=== PATIENT | male | born 1925 | race Caucasian/White ===

== ENCOUNTER 2016-08-06 20:00 | Emergency (ER) | payer OTHER, MEDICARE ==
[~2016-08-06] VITALS: Ht 167.6 cm; Wt 71.2 kg
[~2016-08-06 20:00] MED LIST: ASPIR 8181 MG PO; ATORVASTATIN CA20 MG PO; FINASTERIDE5 MG PO; FUROSEMIDE20 MG PO; GABAPENTIN300 MG PO; MEDROL DOSEPAK1 PAC PO; METOPROLOL TART50 MG PO; NAPROSYN 250MG250 MG PO; TAMSULOSIN HYD0.4 MG PO; TRAMADOL50 MG PO; VESICARE 5MG5 MG PO
[2016-08-06] MEDS ORDERED: LISINOPRIL5 M1 PO (21:45)
[2016-08-06] MEDS ORDERED: VESICARE10 MG PO (21:45)
[2016-08-06] MEDS ORDERED: LASIX20 M1 PO (21:45)
[2016-08-06] MEDS ORDERED: ASPIRIN81 M4 PO (21:46)
[2016-08-06] MEDS ORDERED: LIPITOR10 M1 PO (21:46)
[2016-08-06] MEDS ORDERED: MULTIVITAMINS1 EAC8 PO (21:46)
[2016-08-06] MEDS ORDERED: METOPROLOL TART25 M1 PO (21:46)
[2016-08-06] MEDS ORDERED: PROSCAR5 M1 PO (21:47)
[2016-08-06] MEDS ORDERED: TIMOLOL MALEATE10 ML OP (21:48)
[2016-08-06] MEDS ORDERED: ALBUTEROL0.63 MG/1 INH/SOL (21:48)
--- NOTE | 2016-08-06 22:13 | ED HEADACHE COMPLAINT ---
History of Present Illness General Chief Complaint: Laceration Procedure Stated Complaint: TRIPPED AND FELL, -LOC Source: patient, family Exam Limitations: no limitations Vital Signs & Intake/Output Vital Signs & Intake/Output Vital Signs Date Time Temp Pulse Resp B/P Pulse O2 O2 Flow FiO2 Ox Delivery Rate 08/06 2253 97.8 78 20 133/71 96 Room Air 08/067 97.6 82 16 132/77 96 Room Air ED Intake and Output 08/07 0000 08/06 1200 Intake Total Output Total Balance Patient 157 lb Weight Allergies Coded Allergies: NO KNOWN ALLERGIES (04/22/14) Reconcile Medications Albuterol Sulfate 0.63 MG/3 ML VIAL.NEB 1 Vial INH/RONALD 4 TIMES/DAY PRN WHEEZING (Reported) Aspirin (Aspirin*) 81 MG TAB.CHEW 1 TAB PO DAILY CARDIAC (Reported) Atorvastatin Calcium (Lipitor) 10 MG TABLET 1 TAB PO DAILY HPL (Reported) Atorvastatin Calcium (Lipitor) 10 MG TABLET 1 TAB PO DAILY HPL (Reported) Finasteride (Proscar) 5 MG TABLET 1 TAB PO DAILY PROSTATE (Reported) Furosemide (Lasix) 20 MG TABLET 1 TAB PO DAILY CARDIAC (Reported) Lisinopril 5 MG TABLET 1 TAB PO DAILY HTN (Reported) Metoprolol Tartrate 25 MG TABLET 1 TAB PO BID HTN (Reported) Multivitamin (Multivitamins) 1 EACH CAPSULE 1 TAB PO DAILY SUPPLEMENT ( Reported) Solifenacin Succinate (Vesicare) 10 MG TABLET 1 TAB PO DAILY URINARY SYMPTOMS (Reported) Timolol Maleate (Unknown Strength) DROPS (Unknown Dose) OP [facility] GLAUCOMA ( Reported) Triage Note: PT TO TRAIGE WITH LAC TO FOREHEAD AND NOSE S/P TRIPPED AND FELL 1HR SAGGER SOAK. PT DENIES LOC, DENIES ANY SIMPTOMS. BLEEDING CONTROLLED. PT UNSURE OF LAST TETANUS VACCINATION. Triage Nurses Notes Reviewed? yes Onset: Abrupt Duration: gone now Timing: single episode today Quality/Severity: mild Severity Numbers: 1 Head Injury Location: frontal HPI: Patient is an 89-year-old male who presents emergency and that today this evening while at his private residence he was ambulating patient tripped on a open cabinet fell forward struck the anterior part of his forehead and nose to the ground where lacerations did occur nosebleed had resolved prior to arrival. Patient denies any preceding episode of lightheaded or dizzy sensation. Denies any loss of consciousness. Patient currently denies any headache blurred vision nausea vomiting neck pain back pain and is otherwise without complaints. Patient did not take medications prior to arrival. Tetanus is unknown. (CARRINGTON SANCHEZ) Past History Travel History Traveled to [place] past 21 day No Medical History Any Pertinent Medical History? 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 No (CARRINGTON SANCHEZ) Review of Systems Review of Systems Constitutional: Reports: no symptoms. Eyes: Reports: no symptoms. Ears, Nose, Throat, Mouth: Reports: see HPI, epistaxis. Respiratory: Reports: no symptoms. Cardiovascular: Reports: no symptoms. Gastrointestinal/Abdominal: Reports: no symptoms. Genitourinary: Reports: no symptoms. Musculoskeletal: Reports: no symptoms. Skin: Reports: no symptoms. Neurological/Psychological: Reports: no symptoms. Hematologic/Endocrine: Reports: see HPI, bleeding. Endocrine: Reports: no symptoms. Immunologic/Allergic: Reports: no symptoms. All Other Systems: Reviewed and Negative (CARRINGTON SANCHEZ) Physical Exam Physical Exam General Appearance: no apparent distress, alert, comfortable Cranial Nerves: normal hearing, normal speech, PERRL Skin: normal color, warm/dry Comments: Well-developed well-nourished person in no acute distress HEENT: Normal EENT exam, extraocular motion intact, no nystagmus. Pupils equally round and reactive to light and accommodation. External auditory canal and Tympanic membranes clear. Pharynx normal. No swelling or edema. Neck: Supple, no lymphadenopathy, normal range of motion without pain or tenderness No central spinous tenderness Back: Nontender, no CVA tenderness. No central spinous tenderness Cardiovascular: Regular rate and rhythms no murmurs rubs or gallops, normal JVP Respiratory: Chest nontender. No respiratory distress.breath sounds clear to auscultation bilaterally Abdomen: Soft, nontender nondistended, no appreciable organomegaly. Normal bowel sounds. No ascites Extremity: No edema, no calf tenderness to palpation, normal and equal pulses. Neuro: Alert oriented x3, motor sensory normal, cranial nerves II through XII grossly intact. Skin: No appreciable rash on exposed skin, skin is warm and dry. Psych: Mood and affect is normal, memory and judgment is normal. Diagram Head: 1) 1.5 cm superficial stellate laceration noted with mild gaping 2) 1 cm superficial stellate laceration no active bleeding 3) 1 cm superficial linear laceration noted Nares are patent nontender nose no gross deformity Core Measures Severe Sepsis Present: No Septic Shock Present: No (CARRINGTON SANCHEZ) Progress Differential Diagnosis: carotid dissection, cav sinus thromb, encephalitis, IC mass/tumor, intracranial Hem., migraine PABLO, musculoskeletal pain, SSS thrombosis , subarach. Hem., TMJ syndrome Plan of Care: Patient denies any use of alcohol. No severe mechanism injury no loss of consciousness no basilar skull fracture no hemotympanum denies any symptoms OF PAIN denies any headache patient acting at baseline. At this time patient does not require CT scan imaging for rule out ICH. Patient was offered x-rays of nares bones however he declined NARES ARE PATENT NONTENDER ORBIT NO STEP OFF DEFORMITY (CARRINGTON SANCHEZ) Departure Departure Disposition: HOME OR SELF CARE Condition: Stable Clinical Impression Primary Impression: Forehead laceration Secondary Impressions: Laceration of nose, Minor head trauma Referrals: SUNNI PADILLA,SYDNEE Kelly (PCP/Family) Additional Instructions: DISCUSSED begin to apply bacitracin to the area once a day for the following 4 days with bandage and after leave area dry and clean and open to improve healing. If you note signs of infection redness, pain, swelling, discharge return to emergency room. Return to the emergency 7 days for suture removal. If symptoms worsen or if YOU develop new concerning symptom return to emergency room immediately. Departure Forms: Customer Survey General Discharge Information (CARRINGTON SANCHEZ) PA/SOFTWARE INTEGRATOR Co-Sign Statement Statement: ED Attending supervision documentation- [x] I saw and evaluated the patient. I have also reviewed all the pertinent lab results and diagnostic results. I agree with the findings and the plan of care as documented in the PA's/SOFTWARE INTEGRATOR's documentation. [] I have reviewed the ED Record and agree with the PA's/SOFTWARE INTEGRATOR's documentation. [] Additions or exceptions (if any) to the PAs/SOFTWARE INTEGRATOR's note and plan are summarized below: [] (SANDRA TOBIAS DO) Procedures Laceration/Wound Repair Laceration/Wound Repair: 1 Wound Location: head Wound's Depth, Shape: superficial, stellate Wound Length (cm): 1.5 Wound Explored: clean, no foreign body removed, irrigated extensively Irrigated w/ Saline (ccs): 300 Betadine Prep? Yes Anesthesia: 1% lidocaine Volume Anesthetic (ccs): 2 Wound Repaired With: sutures Suture Size/Type: 6:0 Number of Sutures: 3 Layer Closure? No Laceration/Wound Repair: 2 Wound Location: head Wound's Depth, Shape: superficial, stellate Wound Length (cm): 1 Wound Explored: clean, no foreign body removed, irrigated extensively Irrigated w/ Saline (ccs): 300 Betadine Prep? Yes Anesthesia: 1% lidocaine Volume Anesthetic (ccs): 2 Wound Repaired With: sutures Suture Size/Type: 6:0 Number of Sutures: 2 Layer Closure? No Laceration/Wound Repair: 3 Wound Location: face (NOSE) Wound's Depth, Shape: superficial, stellate Wound Length (cm): 1 Wound Explored: clean, no foreign body removed, irrigated extensively Irrigated w/ Saline (ccs): 300 Betadine Prep? Yes Anesthesia: 1% lidocaine Volume Anesthetic (ccs): 2 Wound Repaired With: sutures Suture Size/Type: 6:0 Number of Sutures: 2 Layer Closure? No Progress: MARGINS WERE REVISED WITH MARGINS PLACED PT TOLERATED WELL BACITRACIN AND BANDAIDS WERE APPLIED TO SUTURE SITES (CARRINGTON SANCHEZ)
[2016-08-06 22:53] VITALS: BP 133/71
== END 2016-08-06 23:00 ==
LOC: ERH 20:00
DX: S01.81XA Laceration without foreign body of other part of head, initial encounter (principal); S01.21XA Laceration without foreign body of nose, initial encounter; S09.90XA Unspecified injury of head, initial encounter; W18.09XA Striking against other object with subsequent fall, initial encounter; Y93.01 Activity, walking, marching and hiking; Y92.009 Unspecified place in unspecified non-institutional (private) residence as the place of occurrence of the external cause
CPT/HCPCS: 90471; 90714

== ENCOUNTER 2016-08-14 06:47 | Emergency (ER) | payer OTHER, MEDICARE ==
[~2016-08-14] VITALS: Ht 162.6 cm; Wt 54.4 kg
[~2016-08-14 06:47] MED LIST changes: +ALBUTEROL0.63 MG/1 INH/SOL; +ASPIRIN81 M4 PO; +LASIX20 M1 PO; +LIPITOR10 M1 PO; +LISINOPRIL5 M1 PO; +METOPROLOL TART25 M1 PO; +MULTIVITAMINS1 EAC8 PO; +PROSCAR5 M1 PO; +TIMOLOL MALEATE10 ML OP; +VESICARE10 MG PO
[2016-08-14 06:59] VITALS: BP 132/59
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
== END 2016-08-14 07:25 ==
LOC: ERH 06:47
DX: S01.21XD Laceration without foreign body of nose, subsequent encounter (principal)
CPT/HCPCS: 99281